=== PATIENT | female | born 1955 | race Caucasian/White ===

== ENCOUNTER 2024-06-14 16:53 | Emergency (ER) | payer MEDICARE, OTHER ==
[~2024-06-14] VITALS: Ht 162.6 cm; Wt 70.5 kg
[2024-06-14 17:58] VITALS: BP 163/67; PULSE 62; RESP 16; TEMP 98; O2SAT 98
== END 2024-06-14 18:00 | disposition home or self-care (01) ==
LOC: ER 16:53
DX: S52.591A Other fractures of lower end of right radius, initial encounter for closed fracture (principal); M25.531 Pain in right wrist; W01.0XXA Fall on same level from slipping, tripping and stumbling without subsequent striking against object, initial encounter; Y93.89 Activity, other specified; Y92.89 Other specified places as the place of occurrence of the external cause; Y99.8 Other external cause status
CPT/HCPCS: 29125; 73110; 99284; A4565; A6449